=== PATIENT | female | born 1960 | race Caucasian/White ===

== ENCOUNTER → 2016-10-13 | Outpatient (CLI) | payer OTHER ==
[~2016-10-13] MED LIST: ESTRA PO; VITA500015 PO
[2016-10-13 12:22] LABS: AUTOMATED NEUTROPHIL # 4.4 TH/MM3 (1.8-7.7); BASOPHIL % 0.5 % (0.0-2.0); EOSINOPHIL # 0.1 TH/MM3 (0-0.4); EOSINOPHIL % 1.3 % (0.0-4.0); HEMATOCRIT 38.2 % (35.0-46.0); HEMO FLAGS DIFF FINAL; LYMPH % 24.4 % (9.0-44.0); LYMPHOCYTE # 1.5 TH/MM3 (1.0-4.8); MEAN CELL VOLUME 92.5 FL (80.0-100.0); MEAN CORPUSCULAR HEMOGLOBIN 30.5 PG (27.0-34.0); MONO % 4.9 % (0.0-8.0); NEUT % 68.9 % (16.0-70.0); PLATELET COUNT 240 TH/MM3 (150-450); RED BLOOD COUNT 4.13 MIL/MM3 (4.00-5.30); RED CELL DISTRIBUTION WIDTH 13.6 % (11.6-17.2); WHITE BLOOD COUNT 6.3 TH/MM3 (4.0-11.0)
[2016-10-13 12:31] LABS: ANION GAP 9 MEQ/L (5-15); AST (GOT) 14 U/L (15-37); BICARBONATE 27.3 MEQ/L (21.0-32.0); BLOOD UREA NITROGEN 21 MG/DL (7-18); CHLORIDE 107 MEQ/L (98-107); GLOMERULAR FILTRATION RATE 94 ML/MIN (>89); GLUCOSE,FASTING 91 MG/DL (74-99); MAGNESIUM 2.1 MG/DL (1.5-2.5); POTASSIUM 3.8 MEQ/L (3.5-5.1); SODIUM (NA) 143 MEQ/L (136-145)
[2016-10-13 12:37] LABS: BACTERIA, URINE MOD /hpf; BLOOD, URINE NEG (NEG); COMMENT (UR) CULTURE INDICATED; CULTURE IF INDICATED CULTURE INDICATED; GLUCOSE,URINE NEG (NEG); KETONE, URINE NEG (NEG); MUCUS URINE FEW /lpf (OCC); NITRITE,URINE NEG (NEG); SQUAMOUS EPITHELIAL CELL URINE 7 /hpf (0-5); URINE COLOR YELLOW (YELLW/STRAW)
[2016-10-13 12:56] LABS: ALKALINE PHOSPHATASE 49 U/L (45-117); ALT (GPT) 26 U/L (10-53); FOLLICLE STIMULATING HORMONE 91.2 mIU/mL; FREE T4 1.04 NG/DL (0.76-1.46); LUTEINIZING HORMONE 37.7 mIU/mL; TOTAL BILIRUBIN ADULT 0.2 MG/DL (0.2-1.0)
[2016-10-15 23:50] LABS: DEHYDROEPIANDROSTERONE SULFATE 61 mcg/dL (8-188)
[2016-10-16 10:29] LABS: BIOAVAILABLE TESTOSTERONE 1.2 ng/dL (()); ESTRADIOL <10 pg/mL (())
[2016-10-16 19:53] LABS: PROGESTERONE LESS THAN 0.1 ng/mL (())
== END ==
LOC: ELAB 08:19
PROVIDERS: ATTEND Hospitalist
DX: N95.9 Unspecified menopausal and perimenopausal disorder (principal); R00.2 Palpitations; R82.90 Unspecified abnormal findings in urine
CPT/HCPCS: 36415; 80053; 81001; 82607; 82627; 82670; 82746; 83001; 83002; 83735; 84144; 84402; 84403; 84410; 84439; 84443; 85025; 87086

== ENCOUNTER → 2016-12-18 | Outpatient (CLI) | payer OTHER ==
[2016-12-18 08:56] LABS: AUTOMATED NEUTROPHIL # 3.3 TH/MM3 (1.8-7.7); BASOPHIL % 0.6 % (0.0-2.0); EOSINOPHIL # 0.1 TH/MM3 (0-0.4); EOSINOPHIL % 2.2 % (0.0-4.0); HEMATOCRIT 39.5 % (35.0-46.0); HEMO FLAGS DIFF FINAL; LYMPH % 32.6 % (9.0-44.0); LYMPHOCYTE # 1.8 TH/MM3 (1.0-4.8); MEAN CELL VOLUME 93.8 FL (80.0-100.0); MEAN CORPUSCULAR HGB CONC 33.1 % (32.0-36.0); MONO % 6.3 % (0.0-8.0); NEUT % 58.3 % (16.0-70.0); PLATELET COUNT 253 TH/MM3 (150-450); RED BLOOD COUNT 4.21 MIL/MM3 (4.00-5.30); RED CELL DISTRIBUTION WIDTH 13.5 % (11.6-17.2); WHITE BLOOD COUNT 5.6 TH/MM3 (4.0-11.0)
[2016-12-18 09:37] LABS: ANION GAP 7 MEQ/L (5-15); BICARBONATE 26.2 MEQ/L (21.0-32.0); BLOOD UREA NITROGEN 17 MG/DL (7-18); CHLORIDE 106 MEQ/L (98-107); GLOMERULAR FILTRATION RATE 110 ML/MIN (>89); GLUCOSE,FASTING 97 MG/DL (74-99); POTASSIUM 3.9 MEQ/L (3.5-5.1); SODIUM (NA) 139 MEQ/L (136-145)
[2016-12-18 09:38] LABS: ALT (GPT) 20 U/L (10-53); AST (GOT) 15 U/L (15-37)
[2016-12-18 09:52] LABS: ALKALINE PHOSPHATASE 50 U/L (45-117); TOTAL BILIRUBIN ADULT 0.2 MG/DL (0.2-1.0)
[2016-12-21 23:57] LABS: BIOAVAILABLE TESTOSTERONE 2.7 ng/dL
== END ==
LOC: ELAB 07:10
PROVIDERS: ATTEND Hospitalist
DX: N95.9 Unspecified menopausal and perimenopausal disorder (principal)
CPT/HCPCS: 36415; 80053; 82627; 84403; 84410; 85025

== ENCOUNTER → 2017-06-11 | Outpatient (CLI) | payer OTHER ==
[2017-06-11 12:34] LABS: AUTOMATED NEUTROPHIL # 3.3 TH/MM3 (1.8-7.7); BASOPHIL % 0.5 % (0.0-2.0); EOSINOPHIL # 0.1 TH/MM3 (0-0.4); EOSINOPHIL % 1.5 % (0.0-4.0); HEMATOCRIT 39.8 % (35.0-46.0); HEMOGLOBIN 13.5 GM/DL (11.6-15.3); LYMPH % 30.5 % (9.0-44.0); LYMPHOCYTE # 1.6 TH/MM3 (1.0-4.8); MEAN CORPUSCULAR HEMOGLOBIN 31.3 PG (27.0-34.0); MEAN PLATELET VOLUME 8.8 FL (7.0-11.0); MONO % 5.7 % (0.0-8.0); MONOCYTE # 0.3 TH/MM3 (0-0.9); NEUT % 61.8 % (16.0-70.0); PLATELET COUNT 251 TH/MM3 (150-450); RED BLOOD COUNT 4.33 MIL/MM3 (4.00-5.30); RED CELL DISTRIBUTION WIDTH 13.7 % (11.6-17.2); WHITE BLOOD COUNT 5.3 TH/MM3 (4.0-11.0)
[2017-06-11 12:45] LABS: ALBUMIN 3.9 GM/DL (3.4-5.0); AST (GOT) 14 U/L (15-37); BICARBONATE 26.8 MEQ/L (21.0-32.0); BLOOD UREA NITROGEN 26 MG/DL (7-18); CALCIUM 8.7 MG/DL (8.5-10.1); CHLORIDE 106 MEQ/L (98-107); CREATININE 0.84 MG/DL (0.50-1.00); GLOMERULAR FILTRATION RATE 70 ML/MIN (>89); GLUCOSE,RANDOM 90 MG/DL (74-106); SODIUM (NA) 139 MEQ/L (136-145)
[2017-06-11 13:12] LABS: ALKALINE PHOSPHATASE 41 U/L (45-117); ALT (GPT) 27 U/L (10-53); FOLATE 10.6 NG/ML (3.1-17.5); FREE T4 0.92 NG/DL (0.76-1.46); TOTAL BILIRUBIN ADULT 0.2 MG/DL (0.2-1.0); TOTAL PROTEIN 7.7 GM/DL (6.4-8.2)
[2017-06-15 15:28] LABS: FREE TESTOSTERONE 0.31 ng/dL (0.06-0.90)
== END ==
LOC: ELAB 08:14
PROVIDERS: ATTEND Hospitalist
DX: R00.2 Palpitations (principal); N95.9 Unspecified menopausal and perimenopausal disorder; R53.83 Other fatigue
CPT/HCPCS: 36415; 80053; 82306; 82607; 82627; 82670; 82746; 83789; 84403; 84410; 84439; 84443; 85025